=== PATIENT | female | born 1980 | race Caucasian/White ===

== ENCOUNTER 2025-05-17 22:36 | Emergency (ER) | payer OTHER, SELFPAY ==
--- OUTSIDE RECORDS SUMMARY | 2025-04-23 11:15 | XMS_ITS | Encounter Summary ---
Author Organization [facility] Address [address] [place] [address] Care Team Providers Care Architectural Draftsman Name Role Phone Marck Shea P.A.-C. Primary Care Provider Reason for Referral * Outpatient (Routine) - Authorized Specialty Diagnoses / Procedures Referred By Contac t Referred To Contact Diagnoses Pain Thoracic Myofascial Myalgia Other Site Procedures Trigger Point Injection Emigdio Dutton M.D. [address] [place] [address] Phone: tel: fax: [facility] Region Referral ID Status Reason Start Date Expiration Date V isits Requested Visits Authorized [id number] Authorized 04/23/2025 07/24/2026 1 1 * Physical Therapy (Routine) - Authorized Specialty Diagnoses / Procedures Referred By Contac t Referred To Contact Diagnoses Pain Thoracic Myofascial Pain Low Back Unspecified Emigdio Dutton M.D. [address] [place] [address] Phone: tel: fax: Referral ID Status Reason Start Date Expiration Date V isits Requested Visits Authorized [id number] Authorized Other 04/23/2025 10/23/2026 1 1 * Outpatient (Routine) - Closed Specialty Diagnoses / Procedures Referred By Contac t Referred To Contact Diagnoses Pain Thoracic Myofascial Pain Low Back Unspecified Procedures DX Thoracic Spine 2 Views Emigdio Dutton M.D. [address] [place] [phone] Phone: tel: fax: [facility] Region Referral ID Status Reason Start Date Expiration Date Visits Re quested Visits Authorized [id number] Closed 04/23/2025 07/24/2026 1 1 Reason for Visit * Reason Comments Consult * Outpatient (Routine) - Closed Specialty Diagnoses / Procedures Referred By Contact Referred To Contact Physical Medicine and Rehabilitation Diagnoses Radiculopathy Thoracic Carmenza Langford APRN, C.N.P., D.N.PLuisito [address] [place] [address] Phone: tel: fax: [facility] Referral ID Status Reason Start Date Expiration Date Visits Re quested Visits Authorized [id number] Closed 03/14/2025 09/13/2026 1 1 Encounter Details Date Type Department Care Team (Latest Contact Info) Description 04/23/2025 11:15 AM CDT Comprehensive Visit Department of Physical Medicine and Rehabilitation in [place], [place] [address] [place] [phone] Emigdio Dutton M.D. [address] [place] [phone] Pain Thoracic Myofascial (Primary Dx); Pain Low Back Unspecified; Myalgia Other Site Social History Tobacco Use Types Packs/Day Years Used Date Smoking Tobacco: Never Passive Smoke Exposure: Never Smokeless Tobacco: Never Alcohol Use Standard Drinks/Week Comments Never 1 (1 standard drink = 0.6 oz pur e alcohol) [facility] Utilities Answer Date Recorded In the past 12 months has th e electric, gas, oil, or water [employer] threatened to shut off services in your home? No 07/24/2024 Humiliation, Afraid, Rape, and Kick questionnair e Answer Date Recorded Within the last year, have y ou been afraid of your partner or ex-partner? No 09/08/2020 Within the last year, have y ou been humiliated or emotionally abused in other ways by your partner or ex-partner? No 09/08/2020 Within the last year, have y ou been kicked, hit, slapped, or otherwise physically hurt by your partner or ex-partner? Patient declined 09/08/2020 Within the last year, have y ou been raped or forced to have any kind of sexual activity by your partner or ex-partner? Patient declined 09/08/2020 Hunger Vital Sign Answer Date Recorded Within the past 12 months, y ou worried that your food would run out before you got the money to buy more. Never true 07/24/20 24 Within the past 12 months, t he food you bought just didn't last and you didn't have money to get more. Never true 07/24/2024 PRAPARE - Transportation Answer Date Re corded In the past 12 months, has l ack of transportation kept you from medical appointments or from getting medications? No 06/27 In the past 12 months, has l ack of transportation kept you from meetings, work, or from getting things needed for daily living? No 07/24/2024 Depression Answer Date Recor ded PHQ-9 Total Score (max 27) 3 03/14 Housing Stability Answer Date Recorded What is your living situation today? I have a [facility] place to live 07/24/2024 Education Answer Date Recorded What is the highest level of school you have completed or the highest degree you have received? 12th grade 09/11/2019 Comments No Sex and Gender Information Value Date Recorded Sex Assigned at Female 08/14/2017 11:51 AM SNAKER Legal Sex Female 9:25 AM SNAKER Gender Identity Female 08/14/2017 11:51 AM SNAKER Sexual Orientation Straight 08/14/2017 11 :51 AM SNAKER documented as of this encounter Patient Instructions * Patient Instructions* Emigdio Dutton M.D. - 04/23/2025 11:15 AM CDT Present directly to the emergency department to rule out tension pneumothorax if you develop any signs or symptoms of respiratory compromise over the next 3 days, e.g. shortness of breath, lightheadedness, chest wall or pleuritic-type pain, palpitations or increased heart rate. documented in this encounter Procedure Notes * Emigdio Dutton M.D. - 04/23/2025 11:15 AM CDTAssociated Order(s): Trigger Point Injection Post-Procedure Diagnose(s): Pain Thoracic Myofascial; Myalgia Other Site Trigger Point Injection (right thoracic) Performed by: Emigdio Dutton M.D. Authorized by: Emigdio Dutton M.D. Care team members present 1. Selina Almaguer, R.M.A. PROCEDURE SUMMARY Indication: Mechanical mid l back pain, myofascial involving right thoracic (T6- T9) paraspinal muscles Pre procedure pain score: 5/10 Post procedure pain score: 0/10 Soft tissue site: right thoracic Thoracic: Right mid-lower thoracic paraspinals, T6-T9 Thoracic position: seated Preparation: Patient was prepped and draped in usual sterile fashion Needle size: 25 G Needle length: 2.5 in Number of muscles injected: 1 or 2 muscles IMAGING Ultrasound image guidance used to localize target, identify at risk structures, and dynamically used to direct therapy to the target. Image(s) acquired and saved. Ultrasound probe (MHz): linear mid-frequency Needle visualization: in-plane Needle approach: lateral to medial INJECTED MEDICATIONS The injected medication(s) listed was divided equally between the identified injection location(s) PROCEDURE DETAILS Thoracic procedure description: The patient was placed in the appropriate position. Prior to the procedure, the thoracic region was examined to determine the location of the trigger point(s) and optimal needle path. Thereafter, a needle was advanced into the trigger point(s) and after negative aspiration, the medication was injected. Following the injection, the needle was withdrawn. The patient tolerated the procedure well and there were no apparent complications. After an appropriate amount of observation, the patient was dismissed from the clinic in good condition under their own power. CONSENT Consent obtained: written (Risks, benefits and alternatives were discussed and a written Informed Consent was obtained. Please see Informed Consent form for further details.) UNIVERSAL PROTOCOL All relevant documentation and testing were reviewed and available. All required blood products, implants, devices and or special equipment were made available as applicable. Pre-procedure verification was conducted and the correct site was marked if required. A fire risk and smoke assessment were done as applicable. The procedural time-out to verify correct patient, correct side/site, and procedure was conducted prior to performing the procedure and confirmed in a procedural pause. PRE-PROCEDURE DETAILS Appropriate hand hygiene, gown, cap, mask, protective eyewear, sterile gloves, skin preparation, sterile drape, and strict aseptic technique were utilized as applicable for the procedure. Skin preparation: chlorhexidine POST-PROCEDURE DETAILS Complications: no apparent complications Comments The patient and significant other were instructed to present directly to the emergency department urgently if she develops any signs or symptoms of respiratory compromise, e.g. shortness of breath, lightheadedness, chest wall or pleuritic-type pain, palpitations or increased heart rate. documented in this encounter Consult Notes * Emigdio Dutton M.D. - 04/23/2025 11:15 AM CDT SUBJECTIVE CHIEF COMPLAINT/REASON FOR VISIT Carmenza Langford APRN, C.N.P., D.N.P. sent this patient for consultation regarding evaluation and management of subacute-chronic nonradiating right midback pain. HISTORY OF PRESENT ILLNESS Mrs. Nandini Peoples is a 44 y.o. woman with history of thoracolumbar scoliosis and longstanding mechanical low back pain who was referred for evaluation of subacute progression of chronic, nonradiating right mid back pain. Her symptoms initially started gradually 1 year ago and begin to steadily worsen starting six months ago and then more rapidly progressed starting 2 months ago. The pain is currently constant and described as sharp or stabbing, with severity ranging between 5-10/10. She localizes the pain to the mid thoracic level between midline and 2 in lateral midline. Pain is consistently made worse with repetitive bending, ipsilateral rotation, lifting and carrying heavier objects, e.g. flower pot. She denies any previous migration of the pain or radiating symptoms laterally to the flank or anterior chest wall. The pain typically improves with use of topical ice though has not been particularly responsive to oral/topical OTC analgesics. She was evaluated by primary care provider6 weeks ago and was provided Medrol Dosepak which substantially improve the pain over the 6 days that she was using the medication after which the pain rapidly recurred to baseline levels. She is also provided muscle relaxer, oral NSAIDs and capsaicin which have not been affective. She did receive chiropractic treatments which were ineffective and actually seem to make the pain worse. She has notendorse any skin color change, rash, localized swelling or warmth of the touch over the affected region. REVIEW OF SYSTEMS All systems were reviewed and were negative except those mentioned in the history of present illness section of this note. PATIENT HISTORY The following portions of the patient's history were reviewed and updated as appropriate: allergies, current medications, family history, medical history, social history, surgical history, and problem list. OBJECTIVE PHYSICAL EXAM NEUROLOGIC: Gait: Normal dougie and stride length. Sensation: Intact light touch sensation throughout the region of involvement. MUSCULOSKELETAL: Inspection: Slight scapulothoracic protraction at rest. Otherwise, no gross axial or appendicular skeletal deformities and no visible muscle bulk asymmetry / atrophy through the affected region. Palpation: focal tenderness to palpation over the T9 spinous process and T6--T9 right paraspinal muscles were palpable taut bands appreciated. DIAGNOSTICS IMAGING STUDIES: I independently reviewed these images and my independent interpretation of findings (which are consistent with the Radiologist???s report) are as follows: Thoracic curve with apex tothe left at T6-T7 (about 22 degrees); this is similar or mildly progressed since 01/06/2012 when it is incompletely included on incidental imaging. No congenital anomalies by plain radiography. No substantial degenerative change. No fracture by plain radiography. Lungs are clear. Limited comparison with 08/25/2021, 01/06/2012. IMPRESSION, REPORT & PLAN ASSESSMENT / PLAN #1 Pain Thoracic Myofascial #2 Pain Low Back Unspecified #3 Myalgia Other Site Mrs. Nandini Peoples presents with 1 year history of nonradiating right midback pain that has been steadily accelerating in terms of progression over the past 6 months in the setting of chronic nonradiating low back pain. Her clinical history and physical examination findings support a diagnosis of mechanical midthoracic back pain with significant myofascial and possible discogenic component. I had an indepth discussion with the patient regarding my clinical findings; including the etiology, prognosis, and treatment options for her diagnoses. I provided education on relevant physiologic and biomechanical principles, instructions for maintaining neutral posture and and avoiding positions activities that aggravate pain. A variety of available physical modalities and therapeutic interventions were discussed, including; ice packs, acetaminophen, oral & topical NSAIDS, muscle relaxers, corticosteroid injections and physical therapy for core/scapulothoracic strengthening, stretchingthe anterior chest wall muscles, posture/ergonomic training and physical modalities. Following our discussion, we decided to proceed with the following treatment plan: - Order x-ray of the thoracic spine to rule out disc degeneration or significant spondylosis through the corresponding levels - Provided physical therapy prescription with instructions to hold onto it until further advised - We discussed the option of completing diagnostic/therapeutic, ultrasound- guided right mid-lower thoracic paraspinal trigger point injections. After discussing the indication and associated risks, the patient requested to receive the injections today. The procedure was performed immediately following this clinical encounter without complication. The patient was instructed to use ice and not to use heat or soak the affected area in water for 48 hours. She was specifically instructed to present directly to the emergency department urgently if she develops any signs or symptoms of respiratory compromise, e.g. shortness of breath, lightheadedness, chest wall or pleuritic-type pain, palpitations or increased heart rate. I will be contacting the patient to review the results of her thoracic x-ray and instructed her to contact me in 2 weeks for an update on her response to the trigger point injection which time further recommendations will be provided. In the event she has significant sustained relief I will instruct her to initiate physical therapy. In the event she has partial or short duration response I may recommend proceeding with more advanced imaging of thoracic spine to rule out underlying structural etiology, e.g. degeneration of the corresponding intervertebral disc or facet joints. Following our discussion the patient expressed understanding and agreement with plan. EDUCATION We discussed the diagnosis and treatment plan in detail. Several appropriate questions were raised and were discussed thoroughly prior to dismissal. The patient expressed understanding of the contentand was in agreement with the plan. No apparent learning barriers were identified; learning preferences include listening. Signed by: Signed by: Emigdio Dutton M.D. 04/23/2025 11:36 AM CDT documented in this encounter Plan of Treatment Not on file documented as of this encounter Procedures Procedure Name Priority Date/Time Associated Diagnosis Comments AK US GUIDE PLC NDL Routine 04/23/2025 1 1:15 AM CDT Pain Thoracic Myofascial Myalgia Other Site AK INJ TRIGGER PNT<=2 MUS Routine 04/23/2025 11:15 AM CDT Pain Thoracic Myofascial Myalgia Other Site documented in this encounter Results * DX Thoracic Spine 2 Views (04/23/2025 12:10 PM CDT) Anatomical Region Laterality Modality Thoracic Spine, Musculoskele shruti RST LOS, Neuroradiology ARZ LOS, Muskuloskeletal FLA LOS N/A Digita l Radiography Impressions 04/23/2025 12:17 PM CDT Thoracic curve with apex to the left at T6-T7 (about 22 degrees); this is similar or mildly progressed since 01/06/2012 when it is incompletely included on incidental imaging. No congenital anomalies by plain radiography. No substantial degenerative change. No fracture by plain radiography. Lungs are clear. Limited comparison with 08/25/2021, 01/06/2012. Narrative 04/23/2025 12:17 PM CDT EXAM: DX THORACIC SPINE 2 VIEWS Procedure Note Jareth Alejandro M.D. - 04/23/2025 EXAM: DX THORACIC SPINE 2 VIEWS IMPRESSION: Thoracic curve with apex to the left at T6-T7 (about 22 degrees); this issimilar or mildly progressed since 01/06/2012 when it is incompletelyincluded on incidental imaging. No congenital anomalies by plainradiography. No substantial degenerative change. No fracture by plain radiography. Lungs are clear.Limited comparison with 08/25/2021, 01/06/2012. us Emigdio Dutton M.D. IMG DIAGNOSTIC IMAGING P ROCEDURES Final Result * AK INJ TRIGGER PNT<=2 MUS, AK US GUIDE PLC NDL (04/23/2025 11:15 AM CDT) Narrative [facility] - 04/23/2025 11:15 AM CDT Emigdio Dutton M.D. 04/23/2025 1:14 PM Trigger Point Injection (right thoracic) Performed by: Emigdio Dutton M.D. Authorized by: Emigdio Dutton M.D. Care team members present 1. Selina Almaguer R.M.A. PROCEDURE SUMMARY Indication: Mechanical mid l back pain, myofascial involving right thoracic (T6-T9) paraspinal muscles Pre procedure pain score: 5/10 Post procedure pain score: 0/10 Soft tissue site: right thoracic Thoracic: Right mid-lower thoracic paraspinals, T6-T9 Thoracic position: seated Preparation: Patient was prepped and draped in usual sterile fashion Needle size: 25 G Needle length: 2.5 in Number of muscles injected: 1 or 2 muscles IMAGING Ultrasound image guidance used to localize target, identify at risk structures, and dynamically used to direct therapy to the target. Image(s) acquired and saved. Ultrasound probe (MHz): linear mid-frequency Needle visualization: in-plane Needle approach: lateral to medial INJECTED MEDICATIONS The injected medication(s) listed was divided equally between the identified injection location(s) PROCEDURE DETAILS Thoracic procedure description: The patient was placed in the appropriate position. Prior to the procedure, the thoracic region was examined to determine the location of the trigger point(s) and optimal needle path. Thereafter, a needle was advanced into the trigger point(s) and after negative aspiration, the medication was injected. Following the injection, the needle was withdrawn. The patient tolerated the procedure well and there were no apparent complications. After an appropriate amount of observation, the patient was dismissed from the clinic in good condition under their own power. CONSENT Consent obtained: written (Risks, benefits and alternatives were discussed and a written Informed Consent was obtained. Please see Informed Consent form for further details.) UN[employer]ERS[employer] PR[employer] All relevant documentation and testing were reviewed and available. All required blood products, implants, devices and or special equipment were made available as applicable. Pre-procedure verification was conducted and the correct site was marked if required. A fire risk and smoke assessment were done as applicable. The procedural time-out to verify correct patient, correct side/site, and procedure was conducted prior to performing the procedure and confirmed in a procedural pause. PRE-PROCEDURE DETAILS Appropriate hand hygiene, gown, cap, mask, protective eyewear, sterile gloves, skin preparation, sterile drape, and strict aseptic technique were utilized as applicable for the procedure. Skin preparation: chlorhexidine POST-PROCEDURE DETAILS Complications: no apparent complications Comments The patient and significant other were instructed to present directly to the emergency department urgently if she develops any signs or symptoms of respiratory compromise, e.g. shortness of breath, lightheadedness, chest wall or pleuritic-type pain, palpitations or increased heart rate. Emigdio Dutton M.D. PROCEDURE/MINOR SURGICAL ORDERABLES Final Result Performing Organization Address City/State/[facility] Co de Phone Number [facility] NA documented in this encounter Visit Diagnoses Diagnosis Pain Thoracic Myofascial- Primary Pain Low Back Unspecified Myalgia Other Site Pain Thoracic Myofascial Pain Low Back Unspecified documented in this encounter Additional Health Concerns Assessment Noted Time PHQ-9 Depression Total Score: 3 03/14/20 25 5:51 AM CDT documented as of this encounter Care Teams Architectural Draftsman Relationship Specialty Start Date End Date Marck Shea P.A.-C. [address] [place] [phone] PCP - General Family Medicine 08/08/22 documented as of this encounter
--- OUTSIDE RECORDS SUMMARY | 2025-04-23 11:50 | XMS_ITS | Encounter Summary ---
Author Organization [facility] Address [address] [place] [id number] Care Team Providers Care Chief Transfer And Pumphouse Operator Name Role Phone Marck Shea P.A.-C. Primary Care Provider Encounter Details Date Type Department Care Team (Late st Contact Info) Description 04/23/2025 11:50 AM CDT Ancillary Procedure Department of Physical Medicine and Rehab Social History Tobacco Use Types Packs/Day Years Used Date Smoking Tobacco: Never Passive Smoke Exposure: Never Smokeless Tobacco: Never Alcohol Use Standard Drinks/Week Comments Never 1 (1 standard drink = 0.6 oz pur e alcohol) occ [facility] Utilities Answer Date Recorded In the past 12 months has e [place], gas, oil, or water [employer] threatened to shut off services in your [...] your living situation today? I have a [facility] place to live 07/24/2024 Education Answer Date Recorded What is the highest level of school you have completed or the highest degree you have received? 12th grade 09/11/2019 Comments No Sex and Gender Information Value Date Recorded Sex Assigned at Female 08/14/2017 11:51 AM INFANTRY UNIT LEADER Legal Sex Female 9:25 AM INFANTRY UNIT LEADER Gender Identity Female 08/14/2017 11:51 AM INFANTRY UNIT LEADER Sexual Orientation Straight 08/14/2017 11 :51 AM INFANTRY UNIT LEADER documented as of this encounter Plan of Treatment Not on file documented as of this encounter Procedures Procedure Name Priority Date/Time Associated Diagnosis Comments PHYSICAL MEDICINE AND REHAB IMAGE EXAM Routine 04/23/2025 11:50 AM CDT documented in this encounter Results * Non-Radiology Image-Physical Medicine And Rehab Image Exam (04/23/2025 11:50 AM CDT) 04/23/2025 11:4 8 AM CDT Narrative [facility] - 04/23/2025 11:59 AM CDT This order has been created and auto-finalized to support the import of images acquired without order. The clinical documentation to support these images can be found on the encounter that produced images. us Provider Not In System IMG NON RAD IMAGING PROCE DURES Final Result [facility] NA documented in this encounter Visit Diagnoses Not on filedocumented in this encounter Additional Health Concerns Assessment Noted Time PHQ-9 Depression Total Score: 3 03/14/20 25 5:51 AM CDT documented as of this encounter Care Teams Chief Transfer And Pumphouse Operator Relationship Specialty Start Date End Date Marck Shea P.A.-C. [address] [place] [address] [place] [phone] PCP - General Family Medicine 08/08/22 documented as of this encounter
--- OUTSIDE RECORDS SUMMARY | 2025-04-23 12:01 | XMS_ITS | Encounter Summary ---
Author Organization [facility] Address [address] [place] [address] Care Team Providers Care [employer] Boatman Name Role Phone Marck Shea P.A.-C. Primary Care Provider Reason for Referral * Outpatient (Routine) - Closed Specialty Diagnoses / Procedures Referred By Contac t Referred To Contact Diagnoses Pain Thoracic Myofascial Pain Low Back Unspecified Procedures DX Thoracic Spine 2 Views Emigdio Dutton M.D. [address] [place] [address] Phone: tel: fax: [facility] Region Referral ID Status Reason Start Date Expiration Date Visits Re quested Visits Authorized [id number] Closed 04/23/2025 07/24/2026 1 1 Reason for Visit * Outpatient (Routine) - Closed Specialty Diagnoses / Procedures Referred By Contac t Referred To Contact Diagnoses Pain Thoracic Myofascial Pain Low Back Unspecified Procedures DX Thoracic Spine 2 Views Emigdio Dutton M.D. [address] [place] [address] Phone: tel: fax: [facility] Region Referral ID Status Reason Start Date Expiration Date Visits Re quested Visits Authorized [id number] Closed 04/23/2025 07/24/2026 1 1 Encounter Details Date Type Department Care Team (Latest Contact Info) Description 04/23/2025 12:01 PM CDT - 04/23/2025 11:59 PM CDT Hospital Encounter Department of Radiology in [place], [place] [address] [place] [address] Emigdio Dutton M.D. [address] [place] [phone] Pain Thoracic Myofascial; Pain Low Back Unspecified Discharge Disposition: Home or Self Care Social History Tobacco Use Types Packs/Day Years Used Date Smoking Tobacco: Never Passive Smoke Exposure: Never Smokeless Tobacco: Never Alcohol Use Standard Drinks/Week Comments Never 1 (1 standard drink = 0.6 oz pur e alcohol) occ [facility] Utilities Answer Date Recorded In the past 12 months has e [employer], gas, oil, or water [employer] threatened to shut off services in your [...] your living situation today? I have a [facility] place to live 07/24/2024 Education Answer Date Recorded What is the highest level of school you have completed or the highest degree you have received? 12th grade 09/11/2019 Comments No Sex and Gender Information Value Date Recorded Sex Assigned at Female 08/14/2017 11:51 AM BACKUP SAWYER Legal Sex Female 9:25 AM BACKUP SAWYER Gender Identity Female 08/14/2017 11:51 AM BACKUP SAWYER Sexual Orientation Straight 08/14/2017 11 :51 AM BACKUP SAWYER documented as of this encounter Medications at Time of Discharge capsaicin (Zostrix) 0.075 % creamIndications :Pain Back Thoracic Apply 1 Application topically 3 (three) times a day. Apply to back pain. 28.3 g 03/14/2025 cyclobenzaprine (FlexeriL) 5 mg tabletIndication s:Pain Back Thoracic Take 1 tablet (5 mg total) by mouth 3 (three) times a day as needed for muscle spasms. 30 tablet 03/14/2025 lidocaine (Lidoderm) 5 % adhesive patch,medicatedI ndications:Pain Back Thoracic Place 1 patch on the skin daily. Apply to back pain. 30 patch 03/14/2025 methylPREDNISolo ne (MedroL DosePak) 4 mg tabletIndication s:Pain Back Thoracic Follow package directions. 21 tablet 03/14/2025 PARoxetine (PaxiL) 30 mg tablet Take 1 tablet (30 mg total) by mouth every morning. 90 tablet 3 07/19/2024 polyethylene glycol (Miralax) 17 gram/dose oral powder Mix entire contents of bottle (238 g) and take along with two 5 mg bisacodyl tablet at 4 pm the evening before procedure. 238 g 07/24/2024 polyethylene glycol (Miralax) 17 gram/dose oral powder Mix entire contents of bottle (119 g) and take 3 to 6 hours before and finish 2 hours before report time. 119 g 07/24/2024 propranoloL (InderaL) 20 mg tablet Take 1 tablet (20 mg total) by mouth every 6 (six) hours as needed (anxiety). 30 tablet 11 07/24/2024 zolpidem (Ambien) 10 mg tablet TAKE ONE TABLET BY MOUTH AT BEDTIME NEEDED FOR SLEEP 30 tablet 5 04/03/2025 documented as of this encounter Plan of Treatment Not on file documented as of this encounter Procedures Procedure Name Priority Date/Time Associated Diagnosis Comments DX THORACIC SPINE 2 VIEWS RAD - Routine (most inpatients and all outpatients) 04/23/2025 12:10 PM CDT Pain Thoracic Myofascial Pain Low Back Unspecified documented in this encounter Results * DX [...] IMG DIAGNOSTIC IMAGING P ROCEDURES Final Result documented in this encounter Visit Diagnoses Diagnosis Pain Thoracic Myofascial Pain Low Back Unspecified documented in this encounter Additional Health Concerns Assessment Noted Time PHQ-9 Depression Total Score: 3 03/14/20 25 5:51 AM CDT documented as of this encounter Care Teams [employer] Relationship Specialty Start Date End Date Marck Shea P.A.-C. [address] [facility] [place] [address] PCP - General Family Medicine 08/08/22 documented as of this encounter
--- OUTSIDE RECORDS SUMMARY | 2025-05-17 22:39 | XMS_ITS | Encounter Summary ---
Author Organization [facility] Address [address] [place] [address] Care Team Providers Care [employer] Flatbed Driver Name Role Phone Marck Shea P.A.-C. Primary Care Provider Encounter Details Date Type Department Care Team (Latest Contact Info) Description 04/25/2025 Results Follow-Up Department of Physical Medicine and Rehabilitation in [place], [place] [address] [place] [address] Emigdio Dutton M.D. [address] [place] [address] DX Thoracic Spine 2 Views Social History Tobacco Use Types Packs/Day Years Used Date Smoking Tobacco: Never Passive Smoke Exposure: Never Smokeless Tobacco: Never Alcohol Use Standard Drinks/Week Comments Never 1 (1 standard drink = 0.6 oz pur e alcohol) [facility] Utilities Answer Date Recorded In the past 12 months has [employer], gas, oil, or water [employer] threatened to shut off services in your [...] your living situation today? I have a [facility] place to live 07/24/2024 Education Answer Date Recorded What is the highest level of school you have completed or the highest degree you have received? 12th grade 09/11/2019 Comments No Sex and Gender Information Value Date Recorded Sex Assigned at Female 08/14/2017 11:51 AM AGRICULTURAL COMMODITIES GRADER Legal Sex Female 9:25 AM AGRICULTURAL COMMODITIES GRADER Gender Identity Female 08/14/2017 11:51 AM AGRICULTURAL COMMODITIES GRADER Sexual Orientation Straight 08/14/2017 11 :51 AM AGRICULTURAL COMMODITIES GRADER documented as of this encounter Plan of Treatment Not on file documented as of this encounter Visit Diagnoses Not on filedocumented in this encounter Additional Health Concerns Infection Onset Date Last Indicated Resolved Time COVID19 05/14/2025 05/14/2025 Assessment Noted Time PHQ-9 Depression Total Score: 3 03/14/20 25 5:51 AM CDT documented as of this encounter Care Teams [employer] Flatbed Driver Relationship Specialty Start Date End Date Marck Shea P.A.-C. [address] [place] [address] PCP - General Family Medicine 08/08/22 documented as of this encounter
--- OUTSIDE RECORDS SUMMARY | 2025-05-17 22:39 | XMS_ITS | Encounter Summary ---
Author Organization [facility] Address [address] [place] [address] Care Team Providers Care Shoe Parts Molder Name Role Phone Marck Shea P.A.-C. Primary Care Provider Reason for Visit * Reason Onset Date Comments Covid 05/15/2025 Encounter Details Date Type Department Care Team (Late st Contact Info) Description 05/15/2025 Nurse Triage Department of Family Medicine, [facility], in [place], [place] [address] [facility] [place] [phone] Cynthia Walker, R.N. Covid Social History Tobacco Use Types Packs/Day Years Used Date Smoking Tobacco: Never Passive Smoke Exposure: Never Smokeless Tobacco: Never Alcohol Use Standard Drinks/Week Comments Never 1 (1 standard drink = 0.6 oz pur e alcohol) [facility] Utilities Answer Date Recorded In the past 12 months has [facility] [employer] gas, oil, or water [facility] threatened to shut off services in your [...] your living situation today? I have a [facility] place to live 07/24/2024 Education Answer Date Recorded What is the highest level of school you have completed or the highest degree you have received? 12th grade 09/11/2019 Comments No Sex and Gender Information Value Date Recorded Sex Assigned at Female 08/14/2017 11:51 AM EMERGENCY MEDICINE PHYSICIAN ASSISTANT Legal Sex Female 9:25 AM EMERGENCY MEDICINE PHYSICIAN ASSISTANT Gender Identity Female 08/14/2017 11:51 AM EMERGENCY MEDICINE PHYSICIAN ASSISTANT Sexual Orientation Straight 08/14/2017 11 :51 AM EMERGENCY MEDICINE PHYSICIAN ASSISTANT documented as of this encounter Miscellaneous Notes * Telephone Encounter - Cynthia Walker R.NLuisito - 05/15/2025 4:18 PM CDT Chief Complaint / Reason for Call Patient is a 44 y.o. female calling regarding Covid. Assessment Concern: Patient diagnosed with covid-19 on 05/14. Patient continues to have body aches and headache. Wondering if there is anything additional she can add. Reviewed home care with patient. No furtherquestions at this time Present for: 05-14-25 Home cares tried: tylenol, ibuprofen, rest, fluids Calling to request: appointment The recommended disposition is Home Care. Encouraged patient to call back with any new, worsening, or persistent symptoms. Reason for Disposition Common cold with no complications Care advice for fever, questions about Protocols used: Common Tzfo-Pnqsa-KS Care Advice Patient/Caregiver understands and will follow care advice?: Yes, able to teach back Common Zzun-Yjgcd-RX Nurse Cynthia Narayanan May 15, 2025 04:30 PM Care Advice HOME CARE: * You should be able to treat this at home. FOR A RUNNY NOSE - BLOW YOUR NOSE: * Nasal mucus and discharge help wash viruses and bacteria out of the nose and sinuses. * Blowing your nose helps clean out your nose. Use a handkerchief or a paper tissue. * If the skin around your nostrils gets irritated, apply a tiny amount of petroleum ointment to thenasal openings once or twice a day. NASAL WASHES FOR A STUFFY NOSE: * Introduction: Saline (salt water) nasal irrigation (nasal wash) is an effective and simple home remedy for treating stuffy nose and sinus congestion. The nose can be irrigated by pouring, spraying,or squirting salt water into the nose and then letting it run back out. * How it Helps: The salt water rinses out excess mucus and washes out any irritants (dust, allergens) that might be present. It also moistens the nasal cavity. * Methods: There are several ways to irrigate the nose. You can use a saline nasal spray bottle (available yxbu-wnv-jnuknny), a rubber ear syringe, a medical syringe without the needle, or a NETI POT. NASAL WASHES - LIJY-JC-IEBS INSTRUCTIONS: * STEP 1: Lean over a sink. * STEP 2: Gently squirt or spray warm salt water into one of your nostrils. * STEP 3: Some of the water may run into the back of your throat. Spit this out. If you swallow thesalt water it will not hurt you. * STEP 4: Blow your nose to clean out the water and mucus. * STEP 5: Repeat steps 1 through 4 for the other nostril. You can do this a couple times a day if it seems to help you. HOW TO MAKE SALINE (SALT WATER) NASAL WASH: * Put 1 cup (8 oz; 240 ml) of water in a clean container. * Add 3/4 teaspoon of non-iodized salt (such as josé luis or pickling salt) to the water. * Add 1/4 teaspoon baking soda to the water. Stir well. * Use distilled water or boiled tap water that has cooled. * Throw away any unused saline nasal wash after 24 hours. MEDICINES FOR STUFFY OR RUNNY NOSE: * Most cold medicines that are available byen-gyk-zrbplew (OTC) are not helpful. * Antihistamines are only helpful if you also have nasal allergies. * If you have a very runny nose and you really think you need a medicine, you can try using a nasaldecongestant for a couple days. NASAL DECONGESTANTS FOR A VERY STUFFY NOSE: * MOST PEOPLE DO NOT NEED TO USE THESE MEDICINES. * If your nose feels blocked, you should try using nasal washes first. * If you have a very stuffy nose, nasal decongestant medicines can shrink the swollen nasal mucosa and allow for easier breathing. If you have a very runny nose, these medicines can reduce the amountof drainage. They may be taken as pills by mouth or as a nasal spray. * Pseudoephedrine (Sudafed): Available ljmt-rlg-znmxvig in pill form. Typical adult dosage is two 30 mg tablets every 6 hours. * Oxymetazoline Nasal Drops (Afrin in [place]; Drixoral in [place]): Available mjgo-dyp-ihukuqq. Clean out the nose before using. [place] each nostril once, wait one minute for absorption, and then spray a second time. * Phenylephrine Nasal Drops (Cash-Synephrine): Available xynz-bxy-wagdnwt. Clean out the nose beforeusing. [place] each nostril once, wait one minute for absorption, and then spray a second time. NASAL DECONGESTANTS - EXTRA NOTES AND WARNINGS: * Do not use these medicines if you have high blood pressure, heart disease, prostate problems, or an overactive thyroid. * Do not use these medicines if you are . * Do not use these medicines if you have used a MAO inhibitor such as isocarboxazid (Marplan), phenelzine (Nardil), rasagiline (Azilect), selegiline (Eldepryl, Emsam), or tranylcypromine (Parnate) inthe past 2 weeks. Life- threatening side effects can occur. * Do not use these medicines for more than 3 days. Reason: Rebound nasal congestion when you stop taking them. * Before using any medicine, read all the instructions on the package. TREATMENT FOR OTHER COLD SYMPTOMS: * For muscle aches, headaches, or moderate fever (more than 101 F or 38.3 C): Take acetaminophen every 4 hours. * Sore throat: Try throat lozenges, hard candy, or warm chicken broth. * Cough: Use cough drops. * Hydrate: Drink adequate liquids. * Before taking any medicine, read all the instructions on the package. HUMIDIFIER: * If the air is dry, use a humidifier in the bedroom. * Dry air makes coughs worse. EXPECTED COURSE: * Fever usually lasts 2 to 3 days. * Runny nose usually lasts 7 to 10 days. * Cough may last 2 to 3 weeks. CALL BACK IF: * Fever lasts over 3 days * Runny nose lasts over 10 days * You become short of breath * You become worse CARE ADVICE given per Common Cold (Adult) guideline. REASSURANCE AND EDUCATION - FEVER: * The presence of a fever usually means that you have an infection. Most fevers are not serious andmay help the body fight infection. The goal of fever therapy is to bring the fever down to a comfortable level. The following fever ranges and definitions can help to put the level of fever into proper perspective: * 100 to 102 F (37.8 - 38.9 C): Low-grade fevers and may help body fight infection. * 102 to 104 F (38.9 - 40 C): Moderate-grade fevers; cause discomfort. * Over 104 F (over 40 C): High fevers; cause discomfort, weakness, headache, lethargy. * Over 106 F (over 41 C): The fever itself can be harmful. * Here is some care advice that should help. GENERAL CARE ADVICE FOR FEVER: * Drink extra fluids to prevent dehydration. Cool or cold fluids are best for fever. * Keep room at a comfortable temperature, perhaps slightly on the cool side. * Avoid excessive clothing or blankets. Dress in 1 layer of lightweight clothing and sleep with 1 light blanket. * For fevers less than 101 F (38.3 C), fever medicines are usually not necessary. * Avoid contact with people who have a weak immune system or are . * Stay at home until your fever is gone. FEVER MEDICINES: * For fevers above 101 F (38.3 C) take either acetaminophen or ibuprofen. * They are cwkl-sao-pqxcdti (OTC) drugs that help treat both fever and pain. You can buy them at the drugstore. * The goal of fever therapy is to bring the fever down to a comfortable level. Remember that fever medicine usually lowers fever 2 to 3 F (1 to 1.5 C). * ACETAMINOPHEN - REGULAR STRENGTH TYLENOL: Take 650 mg (two 325 mg pills) by mouth every 4 to 6 hours as needed. Each Regular Strength Tylenol pill has 325 mg of acetaminophen. The most you should take is 10 pills a day (3,250 mg total). Note: In [place], the maximum is 12 pills a day (3,900 mg total). * ACETAMINOPHEN - EXTRA STRENGTH TYLENOL: Take 1,000 mg (two 500 mg pills) every 6 to 8 hours as needed. Each Extra Strength Tylenol pill has 500 mg of acetaminophen. The most you should take is 6 pills a day (3,000 mg total). Note: In [place], the maximum is 8 pills a day (4,000 mg total). * IBUPROFEN (SUCH MOTRIN, ADVIL): Take 400 mg (two 200 mg pills) by mouth every 6 hours. The most you should take is 6 pills a day (1,200 mg total). FEVER MEDICINES - EXTRA NOTES AND WARNINGS: * Follow these dosing instructions unless your doctor (or REPORTING MANAGER/PA) has told you to take a different dose. * Acetaminophen is thought to be safer than ibuprofen or naproxen in people over 65 years old. Acetaminophen is in many OTC and prescription medicines. It might be in more than one medicine that you are taking. You need to be careful and not take an overdose. An acetaminophen overdose can hurt the liver. * [employer], the company that makes Tylenol, has different maximum dosage instructions for Tylenol in [place] than in the [place]. [employer], the company that makes Aleve, has different dosage maximum instructions for Aleve in [place] and the [place]. * CAUTION: Do not take acetaminophen if you have liver disease. * CAUTION: Do not take ibuprofen or naproxen if you have stomach problems, kidney disease, are , or have been told by your doctor to avoid this type of anti-inflammatory drug. Do not take ibuprofen or naproxen for more than 7 days without consulting your doctor. If you take blood thinners, ibuprofen and naproxen can increase the risk of bleeding. * Before taking any medicine, read all the instructions on the package. CALL BACK IF: * You have more questions or concerns * You become worse documented in this encounter Plan of Treatment Not on file documented as of this encounter Visit Diagnoses Not on filedocumented in this encounter Additional Health Concerns Infection Onset Date Last Indicated Resolved Time COVID19 05/14/2025 05/14/2025 Assessment Noted Time PHQ-9 Depression Total Score: 3 03/14/20 25 5:51 AM CDT documented as of this encounter Care Teams Shoe Parts Molder Relationship Specialty Start Date End Date Marck Shea P.A.-C. [address] [place] [address] PCP - General Family Medicine 08/08/22 documented as of this encounter
--- OUTSIDE RECORDS SUMMARY | 2025-05-17 22:39 | XMS_ITS | Encounter Summary ---
Author Organization [facility] Address [address] [place] [address] Care Team Providers Care Photographic Editor Name Role Phone Marck Shea P.A.-C. Primary Care Provider Encounter Details Date Type Department Care Team (Late st Contact Info) Description 05/15/2025 Results Follow-Up Department of Family Medicine, [facility] in [address] [phone] Ashley Hardwick RLuisitoN. EXT Home SARS Coronavirus-2 (COVID-19) Antigen Social History Tobacco Use Types Packs/Day Years Used Date Smoking Tobacco: Never Passive Smoke Exposure: Never Smokeless Tobacco: Never Alcohol Use Standard Drinks/Week Comments Never 1 (1 standard drink = 0.6 oz pur e alcohol) [facility] Utilities Answer Date Recorded In the past 12 months has e [employer], gas, oil, or water [employer] threatened to shut off services in your [...] your living situation today? I have a [facility] place to live 07/24/2024 Education Answer Date Recorded What is the highest level of school you have completed or the highest degree you have received? 12th grade 09/11/2019 Comments No Sex and Gender Information Value Date Recorded Sex Assigned at Female 08/14/2017 11:51 AM LECTURER OF [employer]E Legal Sex Female 9:25 AM LECTURER OF [employer]E Gender Identity Female 08/14/2017 11:51 AM LECTURER OF [employer] Sexual Orientation Straight 08/14/2017 11 :51 AM LECTURER OF [employer]E documented as of this encounter Miscellaneous Notes * Result Encounter Note - Ashley Hardwick, RLuisitoN. - 05/15/2025 8:25 AM CDT A COVID-19 positive test result has been entered for your patient. They are considered low risk forCOVID-19 (under age 65 with MASS of 0 to 3). Clinicians should familiarize themselves with these general testing and treatment protocols for symptomatic patients, which can be referenced in [email or web address]. Check this resource frequently for timely updates, as some guidelines are still being finalized. Treatment for low-risk patients should be discouraged but not denied. Studies have shown that treating low-risk patients does not shorten their symptom duration or reduce their risk of hospitalization. For some low-risk patients, treatment could make them feel worse. Symptomatic care only is recommended for this patient group. Your patient will not receive proactive outreach regarding their treatment options. - [facility] Virtual (COVID-19) Care Team documented in this encounter Plan of Treatment Not on file documented as of this encounter Visit Diagnoses Not on filedocumented in this encounter Additional Health Concerns Infection Onset Date Last Indicated Resolved Time COVID19 05/14/2025 05/14/2025 Assessment Noted Time PHQ-9 Depression Total Score: 3 03/14/20 25 5:51 AM CDT documented as of this encounter Care Teams Photographic Editor Relationship Specialty Start Date End Date Marck Shea P.A.-C. [address] [place] [phone] PCP - General Family Medicine 08/08/22 documented as of this encounter
--- OUTSIDE RECORDS SUMMARY | 2025-05-17 22:39 | XMS_ITS | Encounter Summary ---
Author Organization [facility] Address [address] [place] [address] Care Team Providers Care Drier And Grinder Tender Name Role Phone Marck Shea P.A.-C. Primary Care Provider Reason for Referral * Outpatient (Routine) - Authorized Specialty Diagnoses / Procedures Referred By Contac t Referred To Contact Diagnoses Screening Mammogram Breast Cancer Procedures BI Breast Screening Bilateral with Tomosynthesis Marck Shea P.ALuisito-CLuisito [address] [facility] [place] [address] Phone: tel: fax: [facility] Region Referral ID Status Reason Start Date Expiration Date V isits Requested Visits Authorized [id number] Authorized 04/29/2025 07/30/2026 1 1 Encounter Details Date Type Department Care Team (Late st Contact Info) Description 04/29/2025 Orders Only [facility] MNT Marck Shea P.ALuisito-CLuisito [address] [place] [address] Screening Mammogram Breast Cancer Social History Tobacco Use Types Packs/Day Years Used Date Smoking Tobacco: Never Passive Smoke Exposure: Never Smokeless Tobacco: Never Alcohol Use Standard Drinks/Week Comments Never 1 (1 standard drink = 0.6 oz pur e alcohol) [facility] Utilities Answer Date Recorded In the past 12 months has th e [employer], [email or web address], oil, or water [employer] threatened to shut off services in your [...] your living situation today? I have a [facility] place to live 07/24/2024 Education Answer Date Recorded What is the highest level of school you have completed or the highest degree you have received? 12th grade 09/11/2019 Comments No Sex and Gender Information Value Date Recorded Sex Assigned at Female 08/14/2017 11:51 AM MUSEUM SPECIALIST Legal Sex Female 9:25 AM MUSEUM SPECIALIST Gender Identity Female 08/14/2017 11:51 AM MUSEUM SPECIALIST Sexual Orientation Straight 08/14/2017 11 :51 AM MUSEUM SPECIALIST documented as of this encounter Plan of Treatment Scheduled Orders Name Type Priority Associated Diagnoses Order Schedule BI Breast Screening Bilateral with Tomosynthesis Imaging RAD - Routine (most inpatients and all outpatients) Screening Mammogram Breast Cancer Expected: 05/13/2025, Expires: 10/16/2025 documented as of this encounter Visit Diagnoses Diagnosis Screening Mammogram Breast Cancer documented in this encounter Additional Health Concerns Assessment Noted Time PHQ-9 Depression Total Score: 3 03/14/20 25 5:51 AM CDT documented as of this encounter Care Teams Drier And Grinder Tender Relationship Specialty Start Date End Date Marck Shea P.A.-C. [address] [place] [phone] PCP - General Family Medicine 08/08/22 documented as of this encounter
--- OUTSIDE RECORDS SUMMARY | 2025-05-17 22:39 | XMS_ITS | Encounter Summary ---
Author Organization [facility] Address [address] [place] [address] Care Team Providers Care Injection Moulding Machine Operator Name Role Phone Marck Shea P.A.-C. Primary Care Provider Reason for Visit * Reason Onset Date Comments Med Question 04/03/2025 Encounter Details Date Type Department Care Team (Late st Contact Info) Description 04/03/2025 Clinical Communication Department of Family Medicine, [facility], in [place], [place] [address] [place] [address] Marck Shea P.A.-C. [address] [place] [address] Med Question Social History Tobacco Use Types Packs/Day Years Used Date Smoking Tobacco: Never Passive Smoke Exposure: Never Smokeless Tobacco: Never Alcohol Use Standard Drinks/Week Comments Never 1 (1 standard drink = 0.6 oz pur e alcohol) occ [facility] Utilities Answer Date Recorded In the past 12 months has e [employer], gas, oil, or water [employer] threatened to shut off services in your [...] your living situation today? I have a [facility] place to live 07/24/2024 Education Answer Date Recorded What is the highest level of school you have completed or the highest degree you have received? 12th grade 09/11/2019 Comments No Sex and Gender Information Value Date Recorded Sex Assigned at Female 08/14/2017 11:51 AM MED DIR Legal Sex Female 9:25 AM MED DIR Gender Identity Female 08/14/2017 11:51 AM MED DIR Sexual Orientation Straight 08/14/2017 11 :51 AM MED DIR documented as of this encounter Miscellaneous Notes * Telephone Encounter - Viridiana Campos, C.MLuisitoALuisito - 04/03/2025 2:32 PM CDT SUBJECTIVE CHIEF COMPLAINT / REASON FOR CALL Med Question Information Discussed Called patient to inform her of prescription sent to pharmacy per Marck Shea P.A.-C. Prescription was too early to fill, provider does give his okay to fill early as patient is leaving for vacation on 04/04/25. Spoke with pharmacy that states insurance will not cover prescription when filled too early and patient may have to pay [id number]. PLAN Disposition/Recommendation: self-care . appropriate at this time, patient encouraged to call back with questions Information/Education: patient/caller able to teach back Caller agreeable to plan of care: yes The following references were used: provider Marck Shea P.A.-C. documented in this encounter Plan of Treatment Not on file documented as of this encounter Visit Diagnoses Not on filedocumented in this encounter Additional Health Concerns Assessment Noted Time PHQ-9 Depression Total Score: 3 03/14/20 25 5:51 AM CDT documented as of this encounter Care Teams Injection Moulding Machine Operator Relationship Specialty Start Date End Date Marck Shea P.A.-C. [address] [place] [phone] PCP - General Family Medicine 08/08/22 documented as of this encounter
--- OUTSIDE RECORDS SUMMARY | 2025-05-17 22:39 | XMS_ITS | Encounter Summary ---
Author Organization [facility] Address [address] [place] [address] Care Team Providers Care Automatic Mounter Name Role Phone Marck Shea P.A.-C. Primary Care Provider Reason for Visit * Reason Comments Med Refill Encounter Details Date Type Department Care Team (Late st Contact Info) Description 04/02/2025 Refill Department of Family Medicine, [facility], in [place], [place] [address] [facility] [address] Marck Shea P.A.-C. [address] [place] [address] Med Refill Social History Tobacco Use Types Packs/Day Years Used Date Smoking Tobacco: Never Passive Smoke Exposure: Never Smokeless Tobacco: Never Alcohol Use Standard Drinks/Week Comments Never 1 (1 standard drink = 0.6 oz pur e alcohol) [facility] Utilities Answer Date Recorded In the past 12 months has e [employer], gas, oil, or water [employer] threatened to shut off services in your [...] your living situation today? I have a [facility] place to live 07/24/2024 Education Answer Date Recorded What is the highest level of school you have completed or the highest degree you have received? 12th grade 09/11/2019 Comments No Sex and Gender Information Value Date Recorded Sex Assigned at Female 08/14/2017 11:51 AM WOOD BUFFER Legal Sex Female 9:25 AM WOOD BUFFER Gender Identity Female 08/14/2017 11:51 AM WOOD BUFFER Sexual Orientation Straight 08/14/2017 11 :51 AM WOOD BUFFER documented as of this encounter Plan of Treatment Not on file documented as of this encounter Visit Diagnoses Not on filedocumented in this encounter Additional Health Concerns Assessment Noted Time PHQ-9 Depression Total Score: 3 03/14/20 25 5:51 AM CDT documented as of this encounter Care Teams Automatic Mounter Relationship Specialty Start Date End Date Marck Shea P.A.-C. [address] [place] [address] [place] [phone] PCP - General Family Medicine 08/08/22 documented as of this encounter
--- OUTSIDE RECORDS SUMMARY | 2025-05-17 22:40 | XMS_ITS | Clinical Summary ---
Author Organization [facility] Address [address] [place] [address] Care Team Providers Care Rip Saw Operator Name Role Phone Marck Shea Primary Care Provider [phone] Allergies Active Allergy Reactions Criticality Noted Date Comments Latex Rash 11/20/2014 Medications zolpidem (AMBIEN) 10 mg tablet Take 1 Tablet by mouth at bedtime. 09/29/19 22 Active acetaminophen (TYLENOL EXTRA STRGTH) 500 mg tabletIndicati ons:Viral URI,Body aches Take 1-2 Tablets (500-1,000 mg) by mouth every 6 hours if needed for Pain. Max acetaminophen dose: 4000mg in 24 hrs. 30 Tablet 01/13/20 22 Active ibuprofen (ADVIL; MOTRIN) 600 mg tabletIndicati ons:Body aches Take 1 Tablet (600 mg) by mouth every 6 hours if needed for Pain. Maximum of 3200 mg in 24 hours. 30 Tablet 01/13/20 22 Active ibuprofen (ADVIL; MOTRIN) 600 mg tabletIndicati ons:Complex tear of lateral meniscus of right knee as current injury, initial encounter Take 1 Tablet (600 mg) by mouth every 6 hours if needed for Pain. Maximum of 3200 mg in 24 hours. 30 Tablet 07/05/20 23 Active crutchIndicati ons:Complex tear of lateral meniscus of right knee as current injury, initial encounter For home use. Length of need 99 months 2 Each 07/05/20 23 Active traMADoL (ULTRAM) 50 mg tabletIndicati ons:Complex tear of medial meniscus, current injury, right knee, initial encounter Take 1 Tablet (50 mg) by mouth every 6 hours if needed for Pain. 15 Tablet 07/05/20 23 Active guaiFENesin SR (Mucinex) 1,200 mg [id number] s:COVID Take 1 Tablet (1,200 mg) by mouth every 12 hours if needed for Expectoration for up to 5 days. 10 Tablet 05/14/20 25 025 Active benzonatate (TESSALON) 200 mg capsuleIndicat ions:COVID Take 1 Capsule (200 mg) by mouth 3 times daily if needed for Cough. 20 Capsule 05/14/20 25 Active benzonatate (TESSALON) 200 mg capsuleIndicat ions:Acute cough Take 1 Capsule (200 mg) by mouth 3 times daily if needed for Cough. 30 Capsule 09/05/20 24 025 Discontin ued(*Med complete/ Regimen complete/ Level of care change) Active Problems Problem Noted Date Diagnosed Date Complex tear of medial menis cus, current injury, right knee, initial encounter 07/04/2023 Severe episode of recurrent major depressive disorder, without psychotic features 05/24/2016 Anxiety 05/24/2016 Encounters Date Type Department Care Team Description 05/14/2025 3:41 PM CDT - 05/14/2025 5:12 PM CDT Emergency [address] [address] Phuc Castro MD COVID (Primary Dx) Discharge Disposition: Home Self Care 05/14/2025 Travel from Last 3 Months Family History Medical History Relation Name Comments Diabetes Father Relation Name Status Comments Father Social History Tobacco Use Types Packs/Day Years Used Date Smoking Tobacco: Never Smokeless Tobacco: Never Tobacco Cessation:Counseling Given: Yes Alcohol Use Standard Drinks/Week Comments No 0 (1 standard drink = 0.6 oz pur e alcohol) Social Connections Answer Date Recorded Do you often feel lonely or isolated from those around you? 0 09/05/2024 Financial Resource Strain Answer Date R ecorded Difficulty of Paying Living Expenses 3 10/26/2024 Difficulty of Paying Living Expenses Not on file 10/26/2024 Food Insecurity Answer Date Recorded Do you worry your food will run out before you are able to buy more? 1 09/05/2024 Transportation Needs Answer Date Record ed Does lack of transportation keep you from medica l appointments? 1 09/05/2024 Does lack of transportation keep you from work, meetings or getting things that you need? 1 09/05/2024 Housing Stability Answer Date Recorded What is your housing situation today? 1 09/05/2024 Interpersonal Safety Answer Date Record ed Are you being hit, kicked, p ushed or yelled at (see row info)? No 05/14/2025 Interpersonal Safety Abuse 12 - 18 Not on file 05/14/2025 Interpersonal Safety Ambulatory Vulnerability No t on file 05/14/2025 Utilities Answer Date Recorded Do you have trouble paying f or utilities (for example, heat, electricity, water, phone)? 1 09/05/2024 Comments No Sex and Gender Information Value Date Recorded Sex Assigned at Not on file Legal Sex Female 6:22 AM MOBILITY DEVELOPER Gender Identity Not on file Sexual Orientation Not on file Obstetrics History Last Filed Vital Signs Vital Sign Reading Time Taken Comments Blood Pressure 128/90 05/14/2025 3:45 PM CDT Pulse 103 05/14/2025 5:12 PM CDT Temperature 36.6 C (97.9 F) 05/14/2025 3:45 PM CDT Respiratory Rate 16 05/14/2025 3:45 PM CDT Oxygen Saturation 95% 05/14/2025 5:12 PM CDT Inhaled Oxygen Concentration - - Weight 61.7 kg (136 lb) 05/14/2025 3:52 PM CDT Height 154.9 cm (5' 1) 05/14/2025 3:52 PM CDT Body Mass Index 25.7 05/14/2025 3:52 PM CDT Plan of Treatment Health Maintenance Due Date Last Done Comments Tetanus booster 1992 HIV for age 15-65 1996 BMI (ht and wt on same day) for age 18+ 12/23/1999 Hepatitis C screening for age 18-79 12/23/1999 Hepatitis B series for 19+ (1 of 3 - 19+ 3-dose series) 2000 Pap test for age 21-65 2002 Depression screening for age 12+ 05/23/2017 05/23/2016 COVID-19 vaccine series ( season) 2024 08/26/2022, 08/17/2021, 01/28/2021, Additional history exists Influenza Vaccine (#1) 2025 Pneumococcal series for age 6-49 Aged Out No longer eligible based on patient's age to complete this topic Procedures Procedure Name Priority Date/Time Associated Diagnosis Comments INFLUENZA A/B PCR Today 05/14/2025 3:4 6 PM CDT COVID-19 MOLECULAR Today 05/14/2025 3: 46 PM CDT from Last 3 Months Results * (ABNORMAL) COVID-19 MOLECULAR (05/14/2025 3:46 PM CDT) [facility] COVID 19 ALLMONIE MOLECULAR Detected(A) Not detected 05/14/2025 4:15 PM CDT [facility] 05/14/2025 4:15 PM CDT [facility] Comment:Specimen submitted t o [facility] for testing. Other SPECIMEN FROM NASOPHARYNGEAL STRUCTURE / Unknown Non-Blood / Unknown 05/14/2025 3:46 PM CDT 05/14/2025 3:48 PM CDT [facility] Ed Triage MICROBIOLOGY Final Result Performing Organization Address [facility] Co de Phone Number [facility] [address] [place] [address] * INFLUENZA A/B PCR (05/14/2025 3:46 PM CDT) [facility] INFLUENZA A PCR NOT Detected 05/14/2025 4:15 PM CDT [facility] INFLUENZA B PCR NOT Detected 05/14/2025 4:15 PM CDT [facility] Other SPECIMEN FROM NASOPHARYNGEAL STRUCTURE / Unknown Non-Blood / Unknown 05/14/2025 3:46 PM CDT 05/14/2025 3:48 PM CDT [facility] Ed Triage MICROBIOLOGY Final Result Performing Organization Address City/[facility]/ZIP Co de Phone Number [facility] [address] [place] [address] from Last 3 Months Additional Health Concerns Infection Onset Date Last Indicated COVID-19 05/14/2025 05/14/2025 Insurance [facility] Advance Directives * Full Code (Latest Code Status on File) Date Activated Date Inactivated Comments 07/05/2023 6:01 AM 07/05/2023 11:39 AM Question Answer Comments Code Status Discussion: Not Discussed * Full Code Date Activated Date Inactivated Comments 10/20/2021 10:45 AM 10/20/2021 3:21 PM Question Answer Comments Code Status Discussion: Not Discussed * Full Code Date Activated Date Inactivated Comments 05/23/2016 8:08 PM 05/25/2016 4:18 PM * Full Code Date Activated Date Inactivated Comments 11/25/2014 10:00 AM 11/25/2014 3:52 PM Care Teams Rip Saw Operator Relationship Specialty Start Date End Date Marck Shea PA [address] [place], [place] [address] [phone] PCP - General Physician Para Educator 11/02/23
--- OUTSIDE RECORDS SUMMARY | 2025-05-17 22:40 | XMS_ITS | Clinical Summary ---
Author Organization [facility] Address [address] [place] [address] Care Team Providers Care Director Of Consumer Affairs Name Role Phone Marck hSea P.A.-C. Primary Care Provider Source Comments Patient records contain information from all sites at [facility]. For routine questions regarding patient records, call [phone] during business hours, M-F 8:00 AM - 5:00 PM Central Time. Record requests for emergency care only can be directed to [phone] at any time.[facility] Allergies Active Allergy Reactions Criticality Noted Date Comments Latex Other (see comments),Rash 07/05/2010 Shanice listed no reactions Medications * This document contains information received from the source organization and may not represent a complete record from that organization. PARoxetine (PaxiL) 30 mg tablet Take 1 tablet (30 mg total) by mouth every morning. 90 tablet 3 4 Active propranoloL (InderaL) 20 mg tablet Take 1 tablet (20 mg total) by mouth every 6 (six) hours as needed (anxiety). 30 tablet 11 4 Active polyethylene glycol (Miralax) 17 gram/dose oral powder Mix entire contents of bottle (238 g) and take along with two 5 mg bisacodyl tablet at 4 pm the evening before procedure. 238 g 4 Active polyethylene glycol (Miralax) 17 gram/dose oral powder Mix entire contents of bottle (119 g) and take 3 to 6 hours before and finish 2 hours before report time. 119 g 4 Active methylPREDNISol one (MedroL DosePak) 4 mg tabletIndicatio ns:Pain Back Thoracic Follow package directions. 21 tablet 5 Active cyclobenzaprine (FlexeriL) 5 mg tabletIndicatio ns:Pain Back Thoracic Take 1 tablet (5 mg total) by mouth 3 (three) times a day as needed for muscle spasms. 30 tablet 5 Active capsaicin (Zostrix) 0.075 % creamIndication s:Pain Back Thoracic Apply 1 Application topically 3 (three) times a day. Apply to back pain. 28.3 g 5 Active lidocaine (Lidoderm) 5 % adhesive patch,medicated Indications:Juan Carlos n Back Thoracic Place 1 patch on the skin daily. Apply to back pain. 30 patch 5 Active zolpidem (Ambien) 10 mg tablet TAKE ONE TABLET BY MOUTH AT BEDTIME NEEDED FOR SLEEP 30 tablet 5 5 Active Active Problems Problem Noted Date Diagnosed Date Depression Major Recurrent Full Remission 2016 Assessment & Plan (03/15/2025 6:53 PM CDT): Stable-followed by PCP. 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 Covid 05/15/2025 Results Follow-Up Department of Family Medicine, [facility] in [place] [address] [place] [address] Ashley Hardwick R.N. EXT Home SARS Coronavirus-2 (COVID-19) Antigen 04/29/2025 Orders Only [facility] PCP [facility] MNT Marck Shea P.A.-CLuisito Screening Mammogram Breast Cancer 04/25/2025 Results Follow-Up Department of Physical Medicine and Rehabilitation in [place], [place] [address] [place] [id number] Emigdio Dutton M.D. DX Thoracic Spine 2 Views 04/23/2025 12:01 PM CDT - 04/23/2025 11:59 PM CDT Hospital Encounter Department of Radiology in [place], [place] [address], [place] [address] Emigdio Dutton M.D. Pain Thoracic Myofascial; Pain Low Back Unspecified Discharge Disposition: Home or Self Care 04/23/2025 11:50 AM CDT Ancillary Procedure Department of Physical Medicine and Rehab 04/23/2025 11:15 AM CDT Comprehensive Visit Department of Physical Medicine and Rehabilitation in [place], [place] [address] [place] [phone] Emigdio Dutton M.D. Pain Thoracic Myofascial (Primary Dx); Pain Low Back Unspecified; Myalgia Other Site 04/03/2025 Clinical Communication Department of Family Medicine, [facility], in [address] [address] Marck Shea P.A.-C. Med Question 04/02/2025 Refill Department of Family Medicine, [facility], in [address] [address] Marck Shea P.A.-C. Med Refill 03/14/2025 3:30 PM CDT Office Visit Department of Family Medicine, [facility], in [address] [address] Carmenza Langford APRN, C.N.P., D.N.P. Pain Back Thoracic (Primary Dx); Depression Major Recurrent Full Remission from Last 3 Months Immunizations Immunization Administration Dates Next Due Influenza, Injectable, Quadrivalent 08/07/2017,1 ,07/22/2015 Influenza, Unspecified 07/01/2016,2014,07/23/2012,2010,11/04/2010,07/22/2008 SARS-COV-2 (COVID-19) - MODERNA(Discontinued) 01/12/2024(Deferred: Patient decision),08/17/2021,01/28/2021, 021 SARS-COV-2 (COVID-19) - PFIZ ER BIVALENT TS(Discontinued)(12 YEARS OR OLDER) 08/26/2022 Tdap 10/08/2021,11/04/2010 influenza trivalent vaccine (6 months and older)(PF) 01/12/2024(Deferred: Patient decision) influenza vaccine quad (FLUZONE/FLUARIX) (6 months and older)(PF) 08/26/2022,07/13/2021,08/14/2020,2018,07/20/2018,08/09/2017 Family History Medical History Relation Name Comments Colon cancer Father cordell Diabetes Father cordell Colon cancer Paternal Grandfather Tredaniel hayes Depression Sister 1 Valerie freddy Ovarian cancer Sister 1 Valerie hayes Depression Sister 2 Ovarian cancer Sister 2 Colon cancer Uncle Fracisco Relation Name Status Comments Father cordell Alive Paternal Grandfather Tre freddy Sister 1 Valerie hayes Sister 2 Alive Uncle Fracisco Social History Tobacco Use Types Packs/Day Years Used Date Smoking Tobacco: Never Passive Smoke Exposure: Never Smokeless Tobacco: Never Tobacco Cessation:Counseling Given: Not Answered Alcohol Use Standard Drinks/Week Comments Never 1 (1 standard drink = 0.6 oz pur e alcohol) [facility] Utilities Answer Date Recorded In the past 12 months has e [employer], gas, oil, or water [email or web address] threatened to shut off services in your [...] your living situation today? I have a [facility] place to live 07/24/2024 Education Answer Date Recorded What is the highest level of school you have completed or the highest degree you have received? 12th grade 09/11/2019 Comments No Sex and Gender Information Value Date Recorded Sex Assigned at Female 08/14/2017 11:51 AM HONING MACHINE SET UP OPERATOR Legal Sex Female 9:25 AM HONING MACHINE SET UP OPERATOR Gender Identity Female 08/14/2017 11:51 AM HONING MACHINE SET UP OPERATOR Sexual Orientation Straight 08/14/2017 11 :51 AM HONING MACHINE SET UP OPERATOR Last Filed Vital Signs Vital Sign Reading Time Taken Comments Blood Pressure 94/66 03/14/2025 3:23 PM CDT Pulse 82 03/14/2025 3:23 PM CDT Temperature 36.1 C (97 F) 03/14/2025 3:23 PM CDT Respiratory Rate 20 03/14/2025 3:23 PM CDT Oxygen Saturation 98% 11/29/2024 2:45 PM HONING MACHINE SET UP OPERATOR Inhaled Oxygen Concentration - - Weight 60.3 kg (132 lb 15 oz) 03/14/2025 3:23 PM CDT Height 153 cm (5' 0.24) 03/14/2025 3:23 PM CDT Body Mass Index 25.76 03/14/2025 3:23 PM CDT Plan of Treatment Health Maintenance Due Date Last Done Comments CT Colonography 1981 Cologuard 1981 FIT 1981 Hepatitis C Screening 1981 Hepatitis B Vaccines (1 of 3 - 19+ 3-dose series) 2000 HPV Vaccines (1 - 3-dose SCDM series) 2008 Mammogram 01/20/2023 01/20/2022 COVID-19 Vaccine ( season) 2024 08/26/2022, 08/17/2021, 01/28/2021, Additional history exists Influenza Vaccine (#1) 2025 , 07/13/2021, 08/14/2020, Additional history exists Depression Monitoring (PHQ-9) 07/14/2025 03/14/2025 Lipid (Cholesterol) Screening 08/26/2027 08/26/2022, 12/27/2011 Colonoscopy 11/30/2027 11/29/2024, 09/26, 02/13/2018 Colorectal Cancer Screening 11/30/2027 DTaP,Tdap,and Td Vaccines (3 - Td or Tdap) 10/08/2031 10/08/2021, 11/04/2010 HIV Screening Completed 05/15/2008 Depression Monitoring (PHQ-9 for quality tracking) Completed 03/14/2025, 03/14/2025 IPV Vaccines Aged Out No longer eligi ble based on patient's age to complete this topic Pneumococcal vaccine (0-49 years) Aged Out No longer eligible based on patient's age to complete this topic Procedures Procedure Name Priority Date/Time Associated Diagnosis Comments EXTM HOME SARS CORONAVIRUS-2 (COVID-19) ANTIGEN, V Routine 05/14/2025 DX THORACIC SPINE 2 VIEWS RAD - Routine (most inpatients and all outpatients) 04/23/2025 12:10 PM CDT Pain Thoracic Myofascial Pain Low Back Unspecified PHYSICAL MEDICINE AND REHAB IMAGE EXAM Routine 04/23/2025 11:50 AM CDT WI US GUIDE PLC NDL Routine 04/23/2025 11:15 AM CDT Pain Thoracic Myofascial Myalgia Other Site WI INJ TRIGGER PNT<=2 MUS Routine 04/23/2025 11:15 AM CDT Pain Thoracic Myofascial Myalgia Other Site COLONOSCOPY Routine 11/29/2024 2:21 PM HONING MACHINE SET UP OPERATOR Anxiety LIPID PANEL, S Routine 08/26/2022 2:20 PM HONING MACHINE SET UP OPERATOR Insomnia Screening Examination Diabetes Mellitus Encounter For Screening For Cardiovascular Disorders Screening Examination For Thyroid Disorder Iron Deficiency Anemia Screening Exam BI BREAST SCREENING BILATERAL WITH TOMOSYNTHESIS RAD - Routine (most inpatients and all outpatients) 01/20/2022 1:18 PM CDT Screening Mammogram Breast Cancer from Last 3 Months or Most Recently Relevant to Health Maintenance Results * (ABNORMAL) EXT Home SARS Coronavirus-2 (COVID-19) Antigen (05/14/2025) EXT Home SARS-CoV-2 Antigen Presumptive Positive(A) Presumptive Negative EXTERNAL NON-INTERFA TOÑA LAB Comment:See communication fo r details Swab 05/14/2025 us Historical Provider LAB MICROBIOLOGY - GENERAL O RDERABLES Final Result EXTERNAL NON-INTERFACED LAB [address] [place] [address] * DX Thoracic Spine 2 Views (04/23/2025 [...] DIAGNOSTIC IMAGING P ROCEDURES Final Result * Non-Radiology Image-Physical Medicine And Rehab Image [...] IMAGING PROCE DURES Final Result IIMS NA * WI INJ TRIGGER PNT<=2 MUS, WI US GUIDE PLC NDL (04/23/2025 11:15 AM [...] pleuritic-type pain, palpitations or increased heart rate. us Emigdio F Dutton M.D. PROCEDURE/MINOR SURGICAL ORDERABLES Final Result Performing Organization Address City/[facility]/ZIP Co de Phone Number MMODAL NA * (ABNORMAL) Lipid Panel (08/26/2022 2:20 PM HONING MACHINE SET UP OPERATOR) Triglycerides 164(H) mg/dL 08/26/2022 7:09 PM HONING MACHINE SET UP OPERATOR OWAT Comment: ----REFERENCE VALUE---- Normal: <150 mg/dL Borderline High: 150-199 mg/dL High: 200-499 mg/dL Very High: > or =500 mg/dL Cholesterol, Total 217(H) mg/dL 2021 7:09 PM HONING MACHINE SET UP OPERATOR OWAT Comment: ----REFERENCE VALUE---- Desirable: < 200 mg/dL Borderline High: 200 - 239 mg/dL High: > or = 240 mg/dL Cholesterol, LDL, Calculated 153(H) mg/dL 08/26/2022 7:09 PM HONING MACHINE SET UP OPERATOR OWAT Comment: ----REFERENCE VALUE---- Desirable: <100 mg/dL Above Desirable: 100-129 mg/dL Borderline High: 130-159 mg/dL High: 160-189 mg/dL Very High: >=190 mg/dL ----ADDITIONAL INFORMATION---- LDL cholesterol calculated using the Ruiz/NIH equation. Cholesterol, HDL 34(L) >=50 mg/dL 08/26/20 7:09 PM HONING MACHINE SET UP OPERATOR OWAT Cholesterol, Non-HDL, Calculated 183(H) mg/dL 08/26/2022 7:09 PM HONING MACHINE SET UP OPERATOR OWAT Comment: ----REFERENCE VALUE---- Desirable: <130 mg/dL Above Desirable: 130-159 mg/dL Borderline High: 160-189 mg/dL High: 190-219 mg/dL Very High: > or =220 mg/dL Fasting (8 HR or more) Yes 08/26/2022 6:51 PM HONING MACHINE SET UP OPERATOR OWAT Blood (Blood, Venous) 08/26/2022 2:20 PM HONING MACHINE SET UP OPERATOR 08/26/2022 6:51 PM HONING MACHINE SET UP OPERATOR Marck Shea P.A.-C. LAB BLOOD ADD-ON Final Result [facility] [address] [facility] [place] [address], [place] OWAT [facility] in [place] [address] [facility] [place] [address] * BI Breast Screening Bilateral with Tomosynthesis (01/20/2022 1:18 PM CDT) Anatomical Region Laterality Modality Breast, Breast Imaging RST L OS, Breast Imaging ARZ LOS, Breast Imaging FLA LOS Bilateral Mammography 01/20/2022 1:33 PM CDT Impressions 01/20/2022 1:35 PM CDT Negative. RECOMMENDATION: Annual Screening Mammogram ASSESSMENT: BI-RADS: 1: Negative. Narrative 01/20/2022 1:35 PM CDT EXAM: BI BREAST SCREENING BILATERAL WITH TOMOSYNTHESIS Current study was evaluated with a Computer Aided Detection (CAD) system. INDICATION: Screening mammogram. COMPARISON: None, this is a baseline screening exam. DENSITY: c. The breast(s) are heterogeneously dense, which may obscure small masses. FINDINGS: No mammographic findings of malignancy. Procedure Note Marques Christian M.D. - 01/20/2022 EXAM: BI BREAST SCREENING BILATERAL WITH TOMOSYNTHESIS Current study was evaluated with a Computer Aided Detection (CAD) system. INDICATION: Screening mammogram. COMPARISON: None, this is a baseline screening exam. DENSITY: c. The breast(s) are heterogeneously dense, which may obscuresmall masses. FINDINGS: No mammographic findings of malignancy. IMPRESSION: Negative. RECOMMENDATION: Annual Screening Mammogram ASSESSMENT: BI-RADS: 1: Negative. us Marck Shea P.A.-C. IMG BI PROCEDURES Marianne l Result from Last 3 Months or Most Recently Relevant to Health Maintenance Additional Health Concerns Infection Onset Date Last Indicated COVID19 05/14/2025 05/14/2025 Insurance WILIAM Sainz [phone] [facility] Advance Directives For more information, please contact: [phone] * Full Code (Latest Code Status on File) Date Activated Date Inactivated Comments 11/29/2024 2:23 PM 11/30/2024 5:44 AM Question Answer Comments Full Code: Discussed * Full Code Date Activated Date Inactivated Comments 11/29/2024 1:00 PM 11/29/2024 2:23 PM Question Answer Comments Full Code: Discussed * Full Code Date Activated Date Inactivated Comments 02/13/2018 11:07 AM 02/13/2018 2:59 PM Question Answer Comments Full Code: Discussed Care Teams Director Of Consumer Affairs Relationship Specialty Start Date End Date Marck Shea P.A.-C. [address] [place] [address] [place] [address] PCP - General Family Medicine 08/08/22
[2025-05-17 22:59] VITALS: BP 102/75; PULSE 95; RESP 16; RESP 18; TEMP 36.7; O2SAT 98; O2SAT 99; BMI 25.7
--- NOTE | 2025-05-17 23:10 | ED.GENADULT ---
HPI - General Adult General Chief complaint: Unspecified Complaint, Adult Stated complaint: covid pos, body aches Time Seen by Provider: 05/17/25 22:58 History of Present Illness HPI narrative: covid positive dx at [facility] ER couple days ago . states was told to take ibuprofen, tylenol and nyquil. pt comes in stating she still has a sore throat and body aches after taking the medications . pt states she has been drinking a lot of fluids. 44-year-old woman presenting to the emergency department with concern of sore throat and body aches. She has been keeping up with fluids. She is not experiencing vomiting or diarrhea. Received an IV from a friend containing fluids and vitamins a couple of days ago. Measured a fever yet yesterday. When seen in the ED a couple of days ago she says has been said that she had been sick for days longer that she actually was. That is why she was given Paxlovid. No underlying comorbidities are identified. Today is day 6 of illness per her report Is just having such a bad headache and also with sore throat and body aches. Is having to sit more elevated to breathe. She just desperate for some sleep. Becomes quite tearful in description of her respiration with symptoms. Related Data Home Medications ?Medication ?Instructions ?Recorded ?Confirmed benzonatate 200 mg capsule 200 mg PO 3XD PRN cough 05/17/25 05/17/25 zolpidem 10 mg tablet 10 mg PO QPM PRN insomnia 05/17/25 05/17/25 Allergies Allergy/AdvReac Type Severity Reaction Status Date / Time latex Allergy Verified 05/17/25 23:02 Review of Systems Status of ROS: Reports: 6 or more systems reviewed and unremarkable except as noted in History and below [facility] Social History Smoking Status: Never smoker Second hand tobacco smoke exposure: No How often do you have a drink containing alcohol: never AUDIT-C Alcohol total score: 0 Non-prescribed substance use: denies use Exam Narrative: Exam Narrative: Pleasant. Skin is warm and dry. Tearful. Vitals are reassuring with good oxygen saturation. Lungs are clear. Oropharynx is mildly erythematous with appears to be some mild edema generally. She does not have any anterior cervical lymphadenopathy. Heart is in elevated rate and regular rhythm. No specific joint swelling or pain. Neck is supple. Other than headache I do not think has any meningeal symptoms. She is afebrile. Const: Vital Signs, click to edit/add: Vital Signs - 24 hr 05/17/25 22:59 Temperature 98.1 F Pulse Rate [Pulse Oximeter] 95 Respiratory Rate 16 Blood Pressure [Ri ght Upper Arm] 102/75 Pulse Oximetry 98 Oxygen Delivery Me thod Room Air Documenting provider has reviewed patient's vital signs: yes Course Vital Signs Vital signs: Initial Vital Signs Temperature 98.1 F 05/17/25 22:59 Temperature Source Temporal Artery Scan 05/17/25 22:59 Pulse Rate 95 05/17/25 22:59 Respiratory Rate 16 05/17/25 22:59 Blood Pressure 102/75 05/17/25 22:59 Blood Pressure Mean 84 05/17/25 22:59 Blood Pressure Position Sitting 05/17/25 22:59 Pulse Oximetry 98 05/17/25 22:59 Oxygen Delivery Method Room Air 05/17/25 22:59 Vital Signs Temperature 98.1 F 05/17/25 22:59 Pulse Rate 95 05/17/25 22:59 Respiratory Rate 16 05/17/25 22:59 Blood Pressure 102/75 05/17/25 22:59 Pulse Oximetry 98 05/17/25 22:59 Oxygen Delivery Method Room Air 05/17/25 22:59 Temperature 98.1 F 05/17/25 23:35 Pulse Rate 89 05/17/25 23:35 Respiratory Rate 16 05/17/25 23:35 Blood Pressure 115/74 05/17/25 23:35 Pulse Oximetry 98 05/17/25 23:34 Oxygen Delivery Method Room Air 05/17/25 23:34 Medical Decision Making MDM Narrative Medical decision making narrative: I think symptoms are still consistent with COVID. Typical [id number] treatment measures apparently are not working. Paxlovid would unlikely to be beneficial and furthermore without comorbidities I do not think I would have recommended anyway. She appears to be maintaining hydration. We did talk about IV fluids and treatment for her headache specifically. I suspect these symptoms though would return. Finally settled on some pain pills in addition to NSAIDs for home. Apparently has tolerated these well in the past. Discussed also with friend who accompanied. See patient discharge plan for further discussion Continue to focus on hydration. Consider powdered electrolyte drinks. I know you are miserable. Will be prescribing some [place] as discussed from [facility]. Each tablet contains 5 mg of hydrocodone and 325 mg of acetaminophen. Could otherwise take up to 800 mg of ibuprofen or up to 1000 mg of acetaminophen per dose. Ibuprofen can be combined with any of these. Alternative to the ibuprofen might be up to 500 mg twice daily of naproxen. Would still recommend 10 days of quarantine from 1st day of symptoms. Consider clearing yourself further with a negative home COVID test. Discharge Plan Discharge Clinical Impression: COVID, Myalgia, Pharyngitis, Headache Patient Disposition: Home w/ Parent or Adult Condition: Stable Additional Instructions: Continue to focus on hydration. Consider powdered electrolyte drinks. I know you are miserable. Will be prescribing some [place] as discussed from [facility]. Each tablet contains 5 mg of hydrocodone and 325 mg of acetaminophen. Could otherwise take up to 800 mg of ibuprofen or up to 1000 mg of acetaminophen per dose. Ibuprofen can be combined with any of these. Alternative to the ibuprofen might be up to 500 mg twice daily of naproxen. Would still recommend 10 days of quarantine from 1st day of symptoms. Consider clearing yourself further with a negative home COVID test. Prescriptions: No Action benzonatate 200 mg capsule 200 mg PO 3XD PRN (Reason: cough) zolpidem 10 mg tablet 10 mg PO QPM PRN (Reason: insomnia) Follow Up/Referrals: Michael Serna MD [Staff Physician, Family Practice] Stand Alone Forms: [employer] Info Instructions
[2025-05-17 23:34] VITALS: BP 115/74; PULSE 89; RESP 16; TEMP 36.7; O2SAT 98
[2025-05-17 23:35] VITALS: BP 115/74; PULSE 89; RESP 16; TEMP 36.7
== END 2025-05-17 23:35 | disposition home or self-care (01) ==
LOC: ED 23:35
PROVIDERS: Emergency Provider Family Medicine; PCP Physician Assistant
DX: U07.1 COVID-19 (principal); J02.9 Acute pharyngitis, unspecified; R51.9 Headache, unspecified
CPT/HCPCS: 99283; 99284